=== PATIENT | female | born 1975 ===

== ENCOUNTER → 2018-03-26 | Outpatient (CLI) | payer OTHER ==
[2018-03-28 12:57] LABS: ESTRADIOL 435.3 pg/mL (.); FOLLICLE STIMULATING HORMONE 8.2 mIU/mL (.)
== END ==
LOC: OD 16:29
PROVIDERS: ATTEND Student in an Organized Health Care Education/Training Program
DX: N64.52 Nipple discharge (principal); Z13.29 Encounter for screening for other suspected endocrine disorder
CPT/HCPCS: 36415; 82306; 82670; 83001; 83002; 84146